=== PATIENT | male | born 1995 | race Caucasian/White ===

== ENCOUNTER 2016-12-09 17:24 | Emergency (ER) | payer BC ==
[2016-12-09] MEDS ORDERED: HYDROcodone-APAP 5 MG -325 MG TABLET PO ONE (17:43)
[2016-12-09] MEDS: CEPHALEXIN 500 MG CAPSULE PO ONE (17:44)
[2016-12-09] MEDS: HYDROcodone-APAP 5 MG -325 MG TABLET PO ONE (17:44)
[2016-12-09] MEDS ORDERED: CEPHALEXIN 500 MG CAPSULE PO ONE (17:44)
--- NOTE | 2016-12-09 18:59 | PDOC ---
Hand / Wrist Injury HPI - General Chief Complaint: Upper Extremity Problem/Injury Stated Complaint: LEFT HAND LACERATION Date Seen by Provider: 12/09/16 Time Seen by Provider: 18:54 Source: POSITIVE: Patient Exam Limitations: POSITIVE: No limitations Nurse's Notes Reviewed & Considered: Yes - History of Present Illness Have you received a tetanus shot in the past 10 years?: Yes Body Location Affected: REPORTS: Upper Extremity (L) (Left fifth finger middle phalangeal.) Timing: REPORTS: Abrupt Duration: 1-3 hours Severity: Severe Location at Time of Onset: REPORTS: Home Context: REPORTS: Laceration, Crush Location of Injury: REPORTS: Left, 5th Finger Quality: REPORTS: "Pain" Modifying Factors: REPORTS: Movement Associated Symptoms: REPORTS: Loss of Power Any Prior Injuries Related to Current Complaint?: No - Patient Home Medications Home Medications: Home Medications NK [No Home Medications Reported] 09/15/15 - Patient Allergies Allergies/Adverse Reactions: Allergies Allergy/AdvReac Type Severity Reaction Status Date / Time No Known Allergies Allergy Unverified 12/09/16 20:24 Past Medical History - heen HEENT History: Denies History Cardiovascular History: Denies History Respiratory History: Denies History Gastrointestinal History: Denies History Genitourinary History: Denies History Endocrine History: Denies History Musculoskeletal History: Denies History Prosthesis or Implant: No Neurological History: Denies History Blood Disorders: Denies History Psychiatric History: Denies History History of Sexually Transmitted Diseases: No Cancer History: Denies History History of MDRO: No History of Other Communicable Diseases: No Alcohol Use: None Substance Use Type: None Previous Surgical History: No Anesthesia Reactions: No Malignant Hyperthermia: No Significant Family History: No pertinent family hx ROS - Limitations ROS Limitations: No Limitations Constitution: REPORTS: Denies Symptoms Cardiovascular: REPORTS: Denies Cardiac Symptoms Respiratory: REPORTS: Denies Resp Symptoms Neurological: REPORTS: Denies Neuro Symptoms Gastrointestinal: REPORTS: Denies GI Symptoms Endocrine: REPORTS: Denies Symptoms Musculoskeletal: REPORTS: Recent Injury, Other (Loss of flexion fifth left finger.) Genitourinary: REPORTS: Denies Symptoms Eyes: REPORTS: Denies Symptoms ENT: REPORTS: Denies Symptoms Skin: REPORTS: Denies Skin Symptoms Lympathic: REPORTS: Denies Lympathic Symptoms Immunologic: POSITIVE: Denies Symptoms Psychiatric: POSITIVE: Denies Psych Symptoms Hand / Wrist Injury Exam - General Appearance General Appearance: POSITIVE: Alert, Cooperative, No Acute Distress - Extremities Upper Extremity: POSITIVE: Ltd. ROM d/t Funct. Def. Neurovascular / Tendon: POSITIVE: Sensation Normal, Motor Normal, No Vascular Compromise, Tendon Function Deficit, Tendon Visualized, Tendon Injury Seen, Flexor Tendon, Complete Tendon, Deficit in Tendon Funct, Limited Flexion Skin: POSITIVE: Warm, Dry - HEENT HEENT: POSITIVE: Head Inspection Nml, Eyes Inspection Nml, Ears Inspection Nml, Nose Inspection Nml, Oral/Dental Inspect. Nml, Pharynx Inspect. Nml, PERRL, EOMI - Respiratory / CVS Respiratory / CVS: POSITIVE: No Respiratory Distress Procedure - Laceration/Wound Repair Site of Lac/Wound:: Left fifth finger PIP joint Wound's Depth, Shape: Into subcutaneous tissue, Into muscle, Flap Distal CMS: Yes Skin Prep: Betadine Prep Local Anesthesia Used - Indicate Amt Used in Comment: Lidocaine 1%: Yes Irrigated w/ Saline (mL): 250 Wound Explored: Contaminated Wound Debrided: Minimal Wound Repaired With: Sutures single layer Suture Size/Type: 4:0, Prolene Number of Sutures: 2 Layer Closure?: No Drain Placement: No Sterile Dressing Applied?: No Splint Applied?: Yes Sling Applied?: No Procedure Note:: After informed verbal consent, his his finger was anesthetized using 1% lidocaine in a ring block at the base of the finger. After allowing adequate time for anesthetic field to mature, wound was scrubbed thoroughly with Betadine and then irrigated with 250 mL of normal saline. Skin edges were loosely reapproximated with 2 interrupted 4-0 Prolene sutures, hemostasis was good. His wound was then bandaged using bacitracin and nonstick gauze. A splint was applied into the position of comfort. Good capillary refill is noted distally. Patient received oral Keflex, and a prescription for [place]. Consultation was made with orthopedic surgery and he has an appointment with [facility] to be seen by the hand surgeon. [facility] will be calling the patient for his appointment time on Monday. Hand / Wrist Injury Progress - Results Reviewed by me Xrays/CTs/US Reviewed by me: Yes Discussed with Radiologist: Yes - Patient's Progress Pain Medication Addressed: POSITIVE: Yes Status: POSITIVE: Improved MDM / ED Course: Patient was evaluated, x-rays were obtained. He received oral Keflex, Betadine scrub, normal saline irrigation, and loose reapproximation of tissues with 4-0 Prolene. Wound was dressed with sterile dressing and a splint was applied. Findings: X-ray of his hand shows no acute osseous abnormalities per my interpretation. Assessment: Laceration of flexor tendon fifth finger right hand at the level of the PIP joint. Plan: Oral antibiotics, oral pain medication as needed, follow-up with [facility] Monday. - Consult Counseled: POSITIVE: Patient, Family, RE: Lab Results, RE: Radiology Results, RE : DX, RE: Need for F/U Patient Care Time - Estimated PCT Patient Care Time (In Minutes): 60 Vital Signs - Recent Vital Signs Vital Signs: Vital Signs (Last 8 hours) Temp Pulse Resp BP Pulse Ox 12/09/16 17:24 98.2 F 61 16 111/67 95 - VS Reviewed Vital Signs Reviewed: Yes Discharge Clinical Impression: Laceration of tendon Discharge Disposition: Discharged to Home Condition: Stable Patient Instructions Given at Discharge: Laceration (ED) Follow Up With: NONE,NONE [Primary Care Provider] -
--- NOTE | 2016-12-09 19:16 | DI ---
XR HAND MIN 3VW,12/09/2016 5:51 PM: Clinical History: Left hand crush injury. Previous Exam: None at this facility. Findings: 3 views the left hand are obtained, and demonstrate a soft tissue deformity involving the left fifth digit. There is mild hyperextension of the distal interphalangeal joint which is likely positional. The metacarpals and carpals are unremarkable. Impression: 1. Soft tissue defect involving the palmar surface of the fifth digit. There is mild hyperextension o f the left fifth distal interphalangeal joint. Cannot rule out a flexor tendon injury.
[2016-12-09] MEDS ORDERED: Lidocaine Inj 1% 20 ML ONE (19:31)
[2016-12-09 20:14] VITALS: RESP 16; TEMP 98.2
[2016-12-09] MEDS ORDERED: BACITRACIN 0.9 GM PACKET OINT TOPICAL ONE (21:19)
[2016-12-09] MEDS: HYDROcodone-APAP 5 MG -325 MG TABLET PO SCH (21:45)
[2016-12-09] MEDS: BACITRACIN 0.9 GM PACKET OINT TOPICAL ONE (21:45)
== END 2016-12-09 22:05 | disposition home or self-care (01) ==
LOC: ER 17:24
DX: S56.128A Laceration of flexor muscle, fascia and tendon of left little finger at forearm level, initial encounter (principal); W23.0XXA Caught, crushed, jammed, or pinched between moving objects, initial encounter
CPT/HCPCS: 12001; 73130; 99282